=== PATIENT | female | born 2000 | race Caucasian/White ===

== ENCOUNTER 2018-01-10 13:05 | Inpatient (IN) ==
[2018-01-10 14:02] LABS: Bilirubin,Urine Negative (Negative); Blood,Urine Large (Negative); Clarity,Urine Cloudy (Clear); Color,Urine Red (Yellow); Glucose,Urine (UA) Normal (Normal); Ketones,Urine Negative (Negative); Leukocyte Esterase,Urine Moderate (Negative); Nitrite,Urine Negative (Negative); Protein,Urine 100 mg/dL (Neg-Trace); Specific Gravity,Urine 1.009 (1.010-1.025); Urobilinogen,Urine Normal (Normal)
[2018-01-10 14:03] LABS: Bacteria,Urine Moderate per hpf (None-Few); Hyaline Casts,Urine None Seen per lpf (None-Few); RBC,Urine 50-100 per hpf (0-3); Squamous Epithelial Cell,Urine Many per lpf (None-Few); WBC,Urine 30-50 per hpf (0-3)
[2018-01-10] MEDS ORDERED: *HR* Labetalol 20 MG/4 ML SYRINGE IVP ONE ×5 (14:05→17:56)
[2018-01-10 14:07] LABS: Basophils # 0.1 K/mcL (0.0-0.2); Basophils % 0.7 %; Eosinophils # 0.4 K/mcL (0.0-0.6); Eosinophils % 3.4 %; Hematocrit 34.4 % (35.3-44.9); Hemoglobin 11.5 g/dL (11.5-15.4); Immature Granulocytes % 0.9 % (0-4); Lymphocytes # 1.9 K/mcL (0.6-4.6); Lymphocytes % 17.5 %; Mean Corpuscular HGB Conc 33.4 g/dL (31.6-35.5); Mean Corpuscular Hemoglobin 30.7 pg (28.0-33.3); Mean Corpuscular Volume 91.7 fL (83.0-100.0); Mean Platelet Volume 13.4 fL (9.4-12.4); Monocytes # 0.7 K/mcL (0.0-1.3); Monocytes % 6.5 %; Neutrophils # 7.7 K/mcL (1.6-8.9); Platelet Count 155 K/mcL (140-400); Red Blood Count 3.75 M/mcL (3.82-4.97); Red Cell Distribution Width 13.4 % (11.5-14.5)
[2018-01-10] MEDS: *HR* Labetalol 20 MG/4 ML SYRINGE IVP STA (14:07)
--- NOTE | 2018-01-10 14:25 | OB/GYN History & Physical ---
Date of Encounter: 01/10/18 Time of Encounter: 14:20 Assessment and Plan (1) 38 weeks gestation of Current visit: Yes Status: Acute admitted for delivery (2) PIH ( induced hypertension), antepartum Current visit: Yes Status: Acute Admitted for delivery Discussed patient assessment, BPs and lab results with Dr. Andino. Dr. Andino agrees with POC and treatment plan. No new orders or recommendations at this time, History of Present Illness Chief complaint: Elevated BP in HPI: Ms. Means is a 18 year old female @ 38w6d presents to labor and delivery from OB appointment with Dr. Bennett for elevated BP in office. BP in office today was 164/120 and repeat was 170/120. Patient had denied headache, visual disturbances or epigastric pain : Nbut now reports visual disturbances. Patient reports good movement. Denies feeling contractions. Patient reports vaginal bleeding after SVE in office today. Patient denies blood clots. Patients SVE in office today was 1-2/60/-3. Blood type: O Positive Rubella: Non-immune Hep B: drawn on admission results pending GBS: Negative Past Med Surg Social Fam HX - Past Medical History Source: patient Medical history: no medical history Additional medical history: miscarriage Psychiatric history: no psych history - Past Surgical History Surgical History: no surgical history - Social History Smoking Status: Never smoker Smokeless Tobacco Status: No Alcohol use: none Drug use: none - Family History Mother Living Status: Still Living Hx Family Cardiac Disorders: No Hx Family Respiratory Disorders: No Hx Family Cancer: No Hx Family GI Disorders: No Hx Family Genitourinary Disorders: No Hx Family Endocrine Disorder: No Hx Family Musculoskeletal Disorders: No Hx Family Neuromuscular Disorders: No Hx Family Neurologic Disorders: No Hx Family HEENT Disorders: No Hx Family Autoimmune Disorders: No Hx Family Reproductive Disorders: No Hx Family Psychosocial Disorders: No Hx Family Medical Disorders: No Obstetrical History - Pregnancies : 2 Para: 0 Term: 0 : 0 Ab's: 0 Livin Medications and Allergies No Known Home Drugs 06/15/15 [History] Allergy/AdvReac Type Severity Reaction Status Date / Time ibuprofen Allergy Swelling Verified 01/10/18 13:46 of Lip/Tongue/Throat Review of System OB - Constitutional Constitutional ROS IM: no chills, no fever(s), no headache(s) - Cardiovascular Cardiovascular: pedal edema, no chest pain, no lightheadedness, no palpitations, no syncope - Respiratory Respiratory: no dyspnea - Gastrointestinal Gastrointestinal: no abdominal pain, no constipation, no diarrhea, no heartburn, no nausea, no vomiting - Genitourinary Genitourinary: no difficulty urinating, no dysuria, no flank pain, no genital lesions, no urinary frequency, no urinary incontinence, no urinary urgency, no vaginal odor, no vaginal pruritis Exam - Constitutional Constitutional: well nourished, no acute distress, average body habitus - HEENT HEENT: Normocephaly, Mucus Membranes Moist - Neck Neck exam: full ROM, supple - Lungs Respiratory exam: CTAB - Cardiovascular Cardiovascular exam: RRR, +S1, +S2 - Abdomen Abdomen: Present: bowel sounds normal, gravid, non tender - Extremities Extremities exam: full ROM, normal capillary refill, pedal edema (1+) Deep Tendon Reflex Grade: 2+ Normal (no clonus) - Cervix Cervix: Absent: lesion Dilation: 2 Effacement: 80 Station: -3 - Uterus Uterus exam: Present: normal size, normal contour - Anus/Rectum Anus/Rectum: Present: normal perianal skin - Comments Comments: FHR 125 bpm moderate variability +15x15 accels no decels noted. Irregular contractions. Speculum exam: no lesions noted inside the vagina or externally on perineum Results Result Diagrams: 01/10/18 13:49 01/10/18 13:49 Abnormal lab results RBC 3.75 M/mcL (3.82-4.97) L 01/10/18 13:49 Hct 34.4 % (35.3-44.9) L 01/10/18 13:49 MPV 13.4 fL (9.4-12.4) H 01/10/18 13:49 Urine Color Red (Yellow) A 01/10/18 13:49 Urine Clarity Cloudy (Clear) A 01/10/18 13:49 Ur Specific [place] 1.009 (1.010-1.025) L 01/10/18 13:49 Urine Protein 100 mg/dL (Neg-Trace) H 01/10/18 13:49 Urine Blood Large (Negative) H 01/10/18 13:49 Ur Leukocyte Esterase Moderate (Negative) H 01/10/18 13:49 Urine Microscopic RBC 50-100 per hpf (0-3) H 01/10/18 13:49 Urine Microscopic WBC 30-50 per hpf (0-3) H 01/10/18 13:49 Ur Squamous Epith Cells Many per lpf (None-Few) H 01/10/18 13:49 Urine Bacteria Moderate per hpf (None-Few) H 01/10/18 13:49 Ur Culture Indicated? NO. (NO) A 01/10/18 13:49 All other labs normal. - VTE Reasons for not Prescribing Prophylaxis: Treatment not Indicated - Low risk for VTE
[2018-01-10 14:54] LABS: Alanine Aminotransferase 9 Units/L (7-52); Aspartate Amino Transferase 24 Units/L (13-39); BUN/Creatinine Ratio 11 (6-26); Blood Urea Nitrogen 8 mg/dL (6-20); Lactate Dehydrogenase 207 Units/L (140-271); Uric Acid 7.7 mg/dL (2.3-7.6); eGFR For Non-African Americans > 60 (> 60)
[2018-01-10 14:55] LABS: Protein/Creatinine Ratio,Urine 4.97 mg/mg (0.00-0.20)
[2018-01-10 14:57] LABS: Amphetamine Screen,Urine Negative ng/mL (Cutoff=1000); Barbiturate Screen,Urine Negative ng/mL (Cutoff=200); Benzodiazepines Screen,Urine Negative ng/mL (Cutoff=200); Cannabinoid Screen,Urine Negative ng/mL (Cutoff = 50); Cocaine Screen,Urine Negative ng/mL (Cutoff= 300); Opiate Screen,Urine Negative ng/mL (Cutoff=300); Phencyclidine Screen,Urine Negative ng/mL (Cutoff=25)
--- NOTE | 2018-01-10 15:19 | OB Labor Progress Note ---
Date of Encounter: 01/10/18 Time of Encounter: 15:15 Labor Progress Note - Subjective Subjective: Discussed POC with patient. Patient denies any questions or concerns at this time. - Cervix Cervix: 2/80/-3 - Heart Tones Heart Tones: 125 bpm moderate variability +15x15 accels no decels noted. Cat. 1 tracing. - [place]: irregular contractions noted. - Interventions Interventions: SVE, keys catheter placed for IOL with 40cc sterile water. Patient tolerated well. - Plan Plan: Continue labor management Cytotec 50mcg PO Dr. Andino updated on patient status and POC.
[2018-01-10] MEDS ORDERED: miSOPROStol 100 MCG TABLET PO STA (15:21)
[2018-01-10] MEDS ORDERED: Ringers Solution, Lactated 1,000 ML ONE ×2 (15:55→23:19)
[2018-01-10] MEDS ORDERED: *HR* Labetalol 20 MG/4 ML SYRINGE IVP STA (15:58)
--- NOTE | 2018-01-10 16:03 | Event Note ---
Date of Encounter: 01/10/18 Time of Encounter: 15:59 Patient's BP 180/101. Magnesium sulfate 4 gram loading dose initiated. Dr. Andino notified of BPs. Dr. Andino states to given Labetalol 20mg IVP now and call him with the repeat BP in 10 minutes. After Magnesium loading dose in finished a 2 gram/hour dose will be started. Will start strict I&O's at this time. IV fluid to be maintained at 125cc/hour. Patient denies any headache, visual disturbances or epigastric pain.
[2018-01-10] MEDS: Magnesium Sulfate 20 gm/500mL 20 GM/500 ML IV.SOLN IVC SCH (16:43)
--- NOTE | 2018-01-10 17:25 | Event Note ---
Date of Encounter: 01/10/18 Time of Encounter: 16:20 Dr. Andino to take over care at this time due to Severe Preeclampsia. Patient notified of transfer of care due to Midwifery scope of practice. Patient denies any questions or concerns as this time.
--- NOTE | 2018-01-10 18:25 | Anesthesia Evaluation PreOp ---
Date of Encounter: 01/10/18 Time of Encounter: 18:15 - Past History Planned Operation: job Cardiac History: Denies any Significant Hx Pulmonary History: Denies Any Significant HX VITAMIN MANAGER History: Denies Any Significant HX Other Medical History: Denies Any Significant HX Anesthesia History: No Prior Anesthetic Complications : Yes Test: Positive Alcohol Use: none Drug use: none Medications and Allergies No Known Home Drugs 06/15/15 [History] Allergy/AdvReac Type Severity Reaction Status Date / Time ibuprofen Allergy Swelling Verified 01/10/18 13:46 of Lip/Tongue/Throat - Meds/Allergy Pre-op Review Medications Reviewed: Yes Allergies Reviewed: Yes Beta Blockers on Current Med List: No Anesthesia Results - Labs 01/10/18 13:49 01/10/18 13:49 Anesthesia Exam - HEENT Pupil (Motor): Pupils equal Mallampati: II Teeth: Normal Oral Opening: Greater than 3 - VITAMIN MANAGER LOC: Oriented VITAMIN MANAGER Motor: Normal RUE, Normal LUE, Normal RLE, Normal LLE, Normal Face VITAMIN MANAGER Sensory: Normal: RUE, LUE, RLE, LLE, Face - Cardiac Rhythm: Regular Murmur: None JVD: No Carotid Bruit: No - Pulmonary Breath Sounds: bilateral Clear Respiratory Effort: Symmetrical Anesthesia Assess/Plan ASA Score: 2 Modified Payal Scale for Level of Consciousness: Cooperative, oriented, and t ranquil Anesthetic Plan: Regional Autologous Blood: No Monitoring Plan: Standard Monitors
--- NOTE | 2018-01-10 18:27 | OB Labor Progress Note ---
Date of Encounter: 01/10/18 Time of Encounter: 18:25 Labor Progress Note - Subjective Subjective: pressures are up again, she is s/p 20mg x2, 40mg IV labetalol, she does not report symptoms of preeclampsia - Vital Signs Vital Signs: severe range pressures (systolics 160's) - Cervix Cervix: 2cm with a keys - Heart Tones Heart Tones: CAT 1 - Plan Plan: patient given IV labetalol 80mg IV, pressures are now in the systolics 130's, will check every 15 mins and if trending up, will give epidural to help reduce the pressure, I talked to the patient about giving hydralazine next (as long as she is not tachycardic), if she continues to have severe range pressure but after that we will need to proceed to a for delivery, Cont Mg for seizure ppx.
[2018-01-10] MEDS ORDERED: Epidural Premix (fent/bupiv) 110 ML EP SCH (18:30)
--- NOTE | 2018-01-10 19:38 | OB Labor Progress Note ---
Date of Encounter: 01/10/18 Time of Encounter: 19:36 Labor Progress Note - Subjective Subjective: keys fell out - Vital Signs Vital Signs: VSS - Cervix Cervix: 4/80 - Heart Tones Heart Tones: CAT 1 - Plan Plan: start pitocin, anticipate , urine output is good, anticipate
[2018-01-10] MEDS ORDERED: Oxytocin 20 units/ LR 1000 mL 20 UNIT/1,000 ML BAG IVC SCH (19:45)
[2018-01-10] MEDS ORDERED: Acetaminophen 325 MG TABLET PO ONE (21:08)
[2018-01-10] MEDS ORDERED: Calcium Gluconate 1,000 MG/10 ML VIAL IVPB ONE (21:14)
--- NOTE | 2018-01-10 22:46 | OB Labor Progress Note ---
Date of Encounter: 01/10/18 Time of Encounter: 22:44 Labor Progress Note - Subjective Subjective: patient desires epidural - Vital Signs Vital Signs: VSS - Cervix Cervix: 4cm - Heart Tones Heart Tones: CAT 1 - Plan Plan: ok for epidural, anticipate
[2018-01-10] MEDS ORDERED: Bupivacaine-MPF 0.25% 10 ML VIAL ONE (22:50)
[2018-01-10] MEDS ORDERED: *HR* FentaNYL (PF) 100 MCG/2 ML VIAL ONE (22:50)
[2018-01-10] MEDS ORDERED: EPHEDrine 50 MG/ML VIAL ONE (23:19)
--- NOTE | 2018-01-10 23:29 | Anesthesia Procedures ---
Date of Encounter: 01/10/18 Time of Encounter: 22:54 (TWIN procedure end 2305) Procedures: Anesthesia - Epidural/Spinal Patient ID/Chart reviewed: Yes Patient examined: Yes OB Eval: Gestational age: 37 OB Eval: : 1 OB Eval: Hx Para: 0 OB Eval: Contractions: Non-stressed pattern Consent Obtained: Yes Site Prep: Aseptic Technique, Sterile prep and drape, Povidone-Iodine 1% Patient position: upright Amount of Local Anesthetic used: 3 Touhy Needle Gauge: 18 Touhy Needle Depth (cm): 6 Catheter Depth at Skin (cm): 8 Test Dose (1.5% Lido + Epi): Volume given (mls): 3 Test Dose Result: Negative Loading Dose: 0.25% Marcaine (mls): 5 Loading Dose: Fentanyl (mcg): 100 Loading Dose Administered: Thru Catheter Infusion Rate (mls/hr): [address]: Tegaderm Interspace Used: L4-L5 Loss of Resistance (SANDRA): Yes Blood: No CSF: No Paresthesia: No Procedure: TWIN with ease first attempt. VSS and FHTS throughout. states no pain after epidural with contractions.
[2018-01-11] MEDS: Magnesium Sulfate 20 gm/500mL 20 GM/500 ML IV.SOLN IVC SCH ×2 (02:30→12:04)
[2018-01-11] MEDS ORDERED: Ringers Solution, Lactated 1,000 ML ONE ×2 (02:54→11:40)
--- NOTE | 2018-01-11 05:26 | OB Labor Progress Note ---
Date of Encounter: 01/11/18 Time of Encounter: 05:24 Labor Progress Note - Subjective Subjective: patient is comfortable s/p epidural - Vital Signs Vital Signs: 140s-150s systolics - Cervix Cervix: 4-5/80 - Heart Tones Heart Tones: CAT 1 - [place]: irreg - Plan Plan: cont with pitocin, patient AROM'ed, anticipate
[2018-01-11] MEDS ORDERED: Acetaminophen 325 MG TABLET PO ONE ×2 (06:02→21:05)
[2018-01-11] MEDS ORDERED: *HR* Ropivacaine/PF 0.2% 20 ML VIAL ONE (10:23)
[2018-01-11] MEDS ORDERED: *HR* FentaNYL (PF) 100 MCG/2 ML VIAL ONE (10:23)
[2018-01-11] MEDS ORDERED: Ondansetron 4 MG/2 ML VIAL IVP PRN (11:43)
--- NOTE | 2018-01-11 11:47 | Event Note ---
Date of Encounter: 01/11/18 Time of Encounter: 11:45 Pitocin currently at 20 microunits. I went to bedside to check on patient. Tracing currently reactive with irregular contractions Sterile vaginal exam unchanged at 5 cm/70% effaced. I have discussed with nursing to begin increasing Pitocin above 20 microunits. We will go to 30 microunits if necessary.
--- NOTE | 2018-01-11 12:09 | Anesthesia Progress Note ---
Date of Encounter: 01/11/18 Time of Encounter: 10:30 Anesthesia Note - Note Note: called to patient's bedside to evaluate breakthrough labor pain. patient describes pain located in the middle of her abdomen with contractions. confirmed catheter to be in proper position. 7mL of 0.1% ropivicaine + 100mcg fentanyl administered through catheter. Patient reports improvement in pain score. VSS 01/11/18 12:07
[2018-01-11] MEDS ORDERED: *HR* Labetalol 20 MG/4 ML SYRINGE IVP ONE ×2 (17:27→17:28)
--- NOTE | 2018-01-11 17:29 | Event Note ---
Date of Encounter: 01/11/18 Time of Encounter: 17:28 Patient's labor progressing. Last cervical check 8 cm, 90% effaced and a +1 station. Reactive heart rate. Patient's blood pressures continued to be elevated. Patient given 20 mg of labetalol IV. Patient currently on magnesium sulfate. Contractions every 2-4 minutes. We will continue induction
[2018-01-11] MEDS ORDERED: *HR* Labetalol 20 MG/4 ML SYRINGE IVP STA (18:28)
[2018-01-11] MEDS: *HR* Labetalol 20 MG/4 ML SYRINGE IVP STA (21:53)
--- NOTE | 2018-01-11 23:01 | OB/GYN Procedure Note ---
Delivery - Delivery Date: 01/11/18 Provider: Prem Penaloza Delivery induction: oxytocin, keys, misoprostol Delivery augmentation: rupture of membranes, pitocin Delivery monitor: external FHT, external uterine, internal uterine Anesthesia: epidural Quantitated Blood Loss: 300 - (s) Infant A Infant Delivery Date: 01/11/18 Delivery Time: 22:30 Presentation: vertex Position: OA Route of delivery: Gender: Female Viability: Viable Pounds: 6 Ounces: 9 Weight Gram: 2.98 kg at 1 minute: 7 at 5 mins: 9 Shoulder Dystocia: not encountered Specimens collected: cord blood Placenta: spontaneous Cord: nuchal cord - Repair Episiotomy: none Laceration Description: Perineal - 1st Degree - Complications Delivery complications: none - Disposition Mom disposition: stable in LDR [place] disposition: stable in LDR - Comments Comments: Patient progressed to complete and pushing and had a spontaneous vaginal delivery of a female infant without complications. Infant's head was in the perineum easily. There was a cord around the neck 1 which was easily reduced. The rest of the was then delivered with 1 push. cried medially on delivery. Cord was cut to cut the was then passed to NICU team in attendance. Cord bloods obtained. Placenta was delivered spontaneously and intact. There are no cervical vaginal or periurethral lacerations noted. There was a first- degree perineal laceration repaired with 0 Vicryl suture in usual fashion. Patient delivered a female weight was 6 lbs. 9 oz., 2980 g with Apgars of 7 at 1 minute and 9 at 5 minutes, estimated blood loss of 300 mL
[2018-01-12] MEDS ORDERED: Measles/Mumps/Rubella Vacc 0.5 ML VIAL SQ PRN (01:53)
[2018-01-12] MEDS ORDERED: Oxytocin 20 units/ LR 1000 mL 20 UNIT/1,000 ML BAG IVC SCH (01:53)
[2018-01-12] MEDS ORDERED: Acetaminophen 325 MG TABLET PO PRN (01:53)
[2018-01-12 03:19] LABS: Alanine Aminotransferase 7 Units/L (7-52); Aspartate Amino Transferase 23 Units/L (13-39); BUN/Creatinine Ratio 10 (6-26); Blood Urea Nitrogen 8 mg/dL (6-20); Lactate Dehydrogenase 264 Units/L (140-271); Uric Acid 8.5 mg/dL (2.3-7.6); eGFR For Non-African Americans > 60 (> 60)
[2018-01-12 08:07] LABS: Basophils % 0.2 %; Eosinophils % 0.1 %; Hematocrit 28.5 % (35.3-44.9); Immature Granulocytes % 0.8 % (0-4); Lymphocytes # 1.5 K/mcL (0.6-4.6); Lymphocytes % 7.7 %; Mean Corpuscular HGB Conc 33.7 g/dL (31.6-35.5); Mean Corpuscular Hemoglobin 30.9 pg (28.0-33.3); Mean Corpuscular Volume 91.6 fL (83.0-100.0); Mean Platelet Volume 12.8 fL (9.4-12.4); Monocytes # 1.5 K/mcL (0.0-1.3); Monocytes % 7.8 %; Neutrophils # 16.4 K/mcL (1.6-8.9); Platelet Count 135 K/mcL (140-400); Red Blood Count 3.11 M/mcL (3.82-4.97); Red Cell Distribution Width 13.9 % (11.5-14.5); Segmented Neutrophils % 83.4 %
[2018-01-12 08:08] LABS: Hemoglobin 9.6 g/dL (11.5-15.4)
--- NOTE | 2018-01-12 08:19 | OB/GYN Progress Note ---
Date of Encounter: 01/12/18 Time of Encounter: 08:17 - Assessment and Plan (1) Status post normal vaginal delivery Current Visit: Yes Status: Acute (2) Mild pre-eclampsia, Current Visit: Yes Status: Acute We will continue magnesium sulfate for 24 hours from delivery we will add labetalol if blood pressure remains elevated after stopping we will repeat labs in a.m. Subjective - Subjective Interval history: Patient is doing well this morning just very tired from her long labor. Denies headaches, blurred vision, scotomata. Currently still on magnesium sulfate will be on this till 10 PM tonight. At this point does not need any antihypertensive medications for blood pressure creeps up once magnesium sulfate stops did advise we might have to start on something baby is in the nursery doing well patient is coming get some rest. Patient states bleeding is minimal. Patient reports: appetite normal, pain well controlled [place]: doing well Objective - Latest Vital Signs Latest vital signs: Vital Signs Temp Pulse Resp BP Pulse Ox 01/12/18 07:35 98.7 F 86 16 148/82 96 01/12/18 06:45 90 16 132/83 01/12/18 05:46 88 16 137/79 01/12/18 04:40 84 16 134/92 01/12/18 03:40 97.9 F 72 16 138/79 96 01/12/18 02:30 98.2 F 82 20 125/82 01/12/18 01:30 98.2 F 87 16 126/77 98 Intake and Output 01/11/18 01/12/18 01/12/18 23:59 07:59 15:59 Intake Total 0 / 0 Output Total 500 / 500 3050 / 3050 Balance -500 / -500 -3050 / -3050 Intake: IV Fluids 0 / 0 Pitocin 20 unit In 1,000 ml @ 0 / 0 Per Protocol IVC .Q0M [facility] Rx#: [id number] Output: Urine 2775 / 2775 Estimated Blood Loss 300 / 300 Catheter 200 / 200 275 / 275 Other: Weight 69.9 kg Patient Weight 01/12/18 23:59 Weight 69.9 kg - Exam Lungs: bilateral: normal Chest: Normal S1, Normal S2 Extremities: Present: normal Abdomen: Present: normal appearance Uterus: Present: firm Uterus Position: At Umbilicus - Labs Labs: Laboratory Results - last 24 hr 01/12/18 01/12/18 02:49 02:49 WBC 19.6 H D RBC 3.11 L Hgb 9.6 L D Hct 28.5 L MCV 91.6 MCH 30.9 MCHC 33.7 RDW 13.9 Plt Count 135 L MPV 12.8 H Immature Gran % 0.8 Seg Neutrophils % 83.4 Lymphocytes % 7.7 Monocytes % 7.8 Eosinophils % 0.1 Basophils % 0.2 Neutrophils # 16.4 H Lymphocytes # 1.5 Monocytes # 1.5 H Eosinophils # 0.0 Basophils # 0.0 BUN 8 Creatinine 0.84 Est GFR ( Amer) > 60 Est GFR (Non-Af Amer) > 60 BUN/Creatinine Ratio 10 Uric Acid 8.5 H AST 23 ALT 7 Lactate Dehydrogenase 264
[2018-01-12] MEDS: Prenatal Vit/FA 1 EACH TABLET PO SCH (08:24)
[2018-01-12] MEDS: Magnesium Sulfate 20 gm/500mL 20 GM/500 ML IV.SOLN IVC SCH ×2 (08:26→18:30)
[2018-01-12] MEDS ORDERED: Ringers Solution, Lactated 1,000 ML ONE (12:47)
[2018-01-13] MEDS: Prenatal Vit/FA 1 EACH TABLET PO SCH (07:58)
--- NOTE | 2018-01-13 10:35 | OB/GYN Progress Note ---
Date of Encounter: 01/13/18 Time of Encounter: 10:31 - Assessment and Plan (1) Status post normal vaginal delivery Current Visit: Yes Status: Acute Continue routine care Anticipate discharge home tomorrow Continue following vitals every 4 hours Pre-E labs tomorrow Anticipate discharge home tomorrow POC per consult with Dr Pnealoza (2) Pre-eclampsia Current Visit: Yes Status: Acute Qualifiers: Trimester: unspecified trimester Qualified Code(s): O14.90 - Unspecified pre-eclampsia, unspecified trimester Subjective - Subjective Principal diagnosis: Vaginal Delivery / Pre-Eclampsia Interval history: S/P vaginal delivery day 2 and Pre-eclampsia VSS; BP well controlled with labetalol. Will continue to monitor Pain well controlled lochia light and without clots voiding without difficulty tolerating regular diet; passing flatus breast feeding and bottle feeding anticipate discharge home tomorrow POC per consult with Dr Penaloza Patient reports: appetite normal, voiding normally, pain well controlled, ambulating normally [place]: doing well, nursing well Objective - Latest Vital Signs Latest vital signs: Vital Signs Temp Pulse Resp BP Pulse Ox 01/13/18 08:57 98.1 F 71 14 137/91 99 01/13/18 06:29 132/61 01/13/18 03:35 142/91 01/13/18 00:30 121/79 01/12/18 22:30 90 16 117/68 01/12/18 21:30 94 16 122/73 01/12/18 20:30 93 16 121/84 01/12/18 19:30 98.9 F 93 16 129/82 97 01/12/18 18:30 87 20 145/95 99 01/12/18 17:42 91 20 149/99 97 01/12/18 17:28 152/101 01/12/18 16:35 82 16 155/97 01/12/18 15:30 97.7 F 88 20 143/90 96 01/12/18 14:30 98 16 128/79 01/12/18 13:32 102 20 125/74 97 01/12/18 12:45 97.9 F 101 16 128/86 96 01/12/18 12:42 101 16 128/86 01/12/18 11:30 98.2 F 98 20 143/85 98 Intake and Output 01/12/18 01/13/18 01/13/18 23:59 07:59 15:59 Intake Total 2360 / 2360 300 / 300 Output Total 2675 / 2675 800 / 800 Balance -315 / -315 -500 / -500 Intake: IV Fluids 1400 / 1400 Magnesium Sulfate Premix 20 gm/ 700 / 700 500mL 20 gm In 500 ml @ 2 GM/HR 50 mls/hr IVC .Q10H [facility] Rx#: [id number] Oral 360 / 360 300 / 300 Free Water 600 / 600 Output: Urine 1575 / 1575 800 / 800 Catheter 1100 / 1100 Other: Meal Dinner Percent of Meal Consumed 100% Weight 66.224 kg Patient Weight 01/13/18 23:59 Weight 66.224 kg - Exam Lungs: bilateral: normal Chest: Normal S1, Normal S2 Extremities: Present: normal Abdomen: Present: normal appearance, soft. Absent: gravid Uterus: Present: normal, firm Uterus Position: At Umbilicus, Midline
[2018-01-14 07:30] LABS: Basophils # 0.1 K/mcL (0.0-0.2); Basophils % 0.6 %; Eosinophils # 0.4 K/mcL (0.0-0.6); Eosinophils % 2.8 %; Hematocrit 26.4 % (35.3-44.9); Hemoglobin 8.7 g/dL (11.5-15.4); Immature Granulocytes % 0.8 % (0-4); Lymphocytes % 15.9 %; Mean Corpuscular Hemoglobin 31.2 pg (28.0-33.3); Mean Corpuscular Volume 94.6 fL (83.0-100.0); Mean Platelet Volume 11.5 fL (9.4-12.4); Monocytes # 0.6 K/mcL (0.0-1.3); Monocytes % 4.5 %; Neutrophils # 9.5 K/mcL (1.6-8.9); Platelet Count 180 K/mcL (140-400); Red Blood Count 2.79 M/mcL (3.82-4.97); Red Cell Distribution Width 13.8 % (11.5-14.5); Segmented Neutrophils % 75.4 %
[2018-01-14 07:51] VITALS: BP 133/83
[2018-01-14 08:01] LABS: Alanine Aminotransferase 12 Units/L (7-52); Aspartate Amino Transferase 33 Units/L (13-39); BUN/Creatinine Ratio 16 (6-26); Blood Urea Nitrogen 10 mg/dL (6-20); Lactate Dehydrogenase 241 Units/L (140-271); Uric Acid 7.8 mg/dL (2.3-7.6); eGFR For Non-African Americans > 60 (> 60)
[2018-01-14] MEDS: Prenatal Vit/FA 1 EACH TABLET PO SCH (08:15)
--- NOTE | 2018-01-14 09:25 | Discharge Summary ---
Date of Encounter: 01/14/18 Time of Encounter: 09:22 - Discharge Diagnosis (1) Status post vaginal delivery Priority: Primary Status: Acute Comments: 18 y/o s/p at 39w following IOL for PIH. Meeting PP milestones. Con tinues to work on . Declines control today, safe spacing discussed. Anticipate discharge today. (2) Pre-eclampsia Priority: Secondary Status: Acute Comments: PIH labs trending down and BPs stable. Pt denies SUAZO or visual disturbances. Pt s/p 24hrs post delivery Magnesium. Review symptom precautions. Discharge home with Labetalol 200mg BID and follow-up appt in 1 week for BP check. POC discussed with Dr. Bennett. Qualifiers: Trimester: unspecified trimester Qualified Code(s): O14.90 - Unspecified pre-eclampsia, unspecified trimester - Discharge Medications Prescriptions: Acetaminophen [Tylenol] 650 mg PO Q6HR PRN #30 tablet PRN Reason: Mild Pain Docusate [Colace] 100 mg PO BID #30 capsule Ferrous Sulfate 325 mg PO DAILY #30 tablet Labetalol [Trandate] 200 mg PO Q12H #120 tablet Miscellaneous Medical Supply [Blood Pressure Cuff] 1 each MC DAILY PRN #1 each PRN Reason: Headache Home Medications: Acetaminophen [Tylenol] 650 mg PO Q6HR PRN #30 tablet 01/14/18 [Rx] Docusate [Colace] 100 mg PO BID #30 capsule 01/14/18 [Rx] Ferrous Sulfate 325 mg PO DAILY #30 tablet 01/14/18 [Rx] Labetalol [Trandate] 200 mg PO Q12H #120 tablet 01/14/18 [Rx] Miscellaneous Medical Supply [Blood Pressure Cuff] 1 each MC DAILY PRN #1 each 01/14/18 [Rx] Vit/FA 1 each PO DAILY tablet 01/14/18 [Rx] Allergies/Adverse Reactions: Allergy/AdvReac Type Severity Reaction Status Date / Time ibuprofen Allergy Swelling Verified 01/10/18 13:46 of Lip/Tongue/Throat Data Procedures and tests throughout hospitalization: Laboratory Tests 01/10/18 01/10/18 01/10/18 13:49 13:49 13:49 WBC 10.9 RBC 3.75 L Hgb 11.5 Hct 34.4 L MCV 91.7 MCH 30.7 MCHC 33.4 RDW 13.4 Plt Count 155 MPV 13.4 H Immature Gran % 0.9 Seg Neutrophils % 71.0 Lymphocytes % 17.5 Monocytes % 6.5 Eosinophils % 3.4 Basophils % 0.7 Neutrophils # 7.7 Lymphocytes # 1.9 Monocytes # 0.7 Eosinophils # 0.4 Basophils # 0.1 BUN 8 Creatinine 0.70 Est GFR ( Amer) > 60 Est GFR (Non-Af Amer) > 60 BUN/Creatinine Ratio 11 Uric Acid 7.7 H AST 24 ALT 9 Lactate Dehydrogenase 207 Urine Color Urine Clarity Urine pH Ur Specific [place] Urine Protein Urine Glucose (UA) Urine Ketones Urine Blood Urine Nitrite Urine Bilirubin Urine Urobilinogen Ur Leukocyte Esterase Urine Microscopic RBC Urine Microscopic WBC Ur Squamous Epith Cells Urine Bacteria Hyaline Casts Ur Culture Indicated? Urine Creatinine Protein/Creatinin Ratio Urine Total Protein Urine Opiates Screen Negative Ur Barbiturates Screen Negative Ur Phencyclidine Scrn Negative Ur Amphetamines Screen Negative U Benzodiazepines Scrn Negative Urine Cocaine Screen Negative U Marijuana (THC) Screen Negative Ur Drug Screen Interp See Below Hep Bs Antigen Blood Type Antibody Screen 01/10/18 01/10/18 01/10/18 13:49 13:49 13:49 WBC RBC Hgb Hct MCV MCH MCHC RDW Plt Count MPV Immature Gran % Seg Neutrophils % Lymphocytes % Monocytes % Eosinophils % Basophils % Neutrophils # Lymphocytes # Monocytes # Eosinophils # Basophils # BUN Creatinine Est GFR ( Amer) Est GFR (Non-Af Amer) BUN/Creatinine Ratio Uric Acid AST ALT Lactate Dehydrogenase Urine Color Urine Clarity Urine pH Ur Specific [place] Urine Protein Urine Glucose (UA) Urine Ketones Urine Blood Urine Nitrite Urine Bilirubin Urine Urobilinogen Ur Leukocyte Esterase Urine Microscopic RBC Urine Microscopic WBC Ur Squamous Epith Cells Urine Bacteria Hyaline Casts Ur Culture Indicated? Urine Creatinine 32 Protein/Creatinin Ratio 4.97 H Urine Total Protein 159 H Urine Opiates Screen Ur Barbiturates Screen Ur Phencyclidine Scrn Ur Amphetamines Screen U Benzodiazepines Scrn Urine Cocaine Screen U Marijuana (THC) Screen Ur Drug Screen Interp Hep Bs Antigen Nonreactive Blood Type O POSITIVE Antibody Screen NEGATIVE 01/10/18 01/12/18 01/12/18 13:49 02:49 02:49 WBC 19.6 H D RBC 3.11 L Hgb 9.6 L D Hct 28.5 L MCV 91.6 MCH 30.9 MCHC 33.7 RDW 13.9 Plt Count 135 L MPV 12.8 H Immature Gran % 0.8 Seg Neutrophils % 83.4 Lymphocytes % 7.7 Monocytes % 7.8 Eosinophils % 0.1 Basophils % 0.2 Neutrophils # 16.4 H Lymphocytes # 1.5 Monocytes # 1.5 H Eosinophils # 0.0 Basophils # 0.0 BUN 8 Creatinine 0.84 Est GFR ( Amer) > 60 Est GFR (Non-Af Amer) > 60 BUN/Creatinine Ratio 10 Uric Acid 8.5 H AST 23 ALT 7 Lactate Dehydrogenase 264 Urine Color Red A Urine Clarity Cloudy A Urine pH 7.0 Ur Specific [place] 1.009 L Urine Protein 100 H Urine Glucose (UA) Normal Urine Ketones Negative Urine Blood Large H Urine Nitrite Negative Urine Bilirubin Negative Urine Urobilinogen Normal Ur Leukocyte Esterase Moderate H Urine Microscopic RBC 50-100 H Urine Microscopic WBC 30-50 H Ur Squamous Epith Cells Many H Urine Bacteria Moderate H Hyaline Casts None Seen Ur Culture Indicated? NO. A Urine Creatinine Protein/Creatinin Ratio Urine Total Protein Urine Opiates Screen Ur Barbiturates Screen Ur Phencyclidine Scrn Ur Amphetamines Screen U Benzodiazepines Scrn Urine Cocaine Screen U Marijuana (THC) Screen Ur Drug Screen Interp Hep Bs Antigen Blood Type Antibody Screen 01/14/18 01/14/18 07:20 07:20 WBC 12.6 H RBC 2.79 L Hgb 8.7 L Hct 26.4 L MCV 94.6 MCH 31.2 MCHC 33.0 RDW 13.8 Plt Count 180 MPV 11.5 Immature Gran % 0.8 Seg Neutrophils % 75.4 Lymphocytes % 15.9 Monocytes % 4.5 Eosinophils % 2.8 Basophils % 0.6 Neutrophils # 9.5 H Lymphocytes # 2.0 Monocytes # 0.6 Eosinophils # 0.4 Basophils # 0.1 BUN 10 Creatinine 0.62 Est GFR ( Amer) > 60 Est GFR (Non-Af Amer) > 60 BUN/Creatinine Ratio 16 Uric Acid 7.8 H AST 33 ALT 12 Lactate Dehydrogenase 241 Urine Color Urine Clarity Urine pH Ur Specific [place] Urine Protein Urine Glucose (UA) Urine Ketones Urine Blood Urine Nitrite Urine Bilirubin Urine Urobilinogen Ur Leukocyte Esterase Urine Microscopic RBC Urine Microscopic WBC Ur Squamous Epith Cells Urine Bacteria Hyaline Casts Ur Culture Indicated? Urine Creatinine Protein/Creatinin Ratio Urine Total Protein Urine Opiates Screen Ur Barbiturates Screen Ur Phencyclidine Scrn Ur Amphetamines Screen U Benzodiazepines Scrn Urine Cocaine Screen U Marijuana (THC) Screen Ur Drug Screen Interp Hep Bs Antigen Blood Type Antibody Screen Labs on day of discharge: Labs from last 24 hours 01/14/18 01/14/18 07:20 07:20 WBC 12.6 H RBC 2.79 L Hgb 8.7 L Hct 26.4 L MCV 94.6 MCH 31.2 MCHC 33.0 RDW 13.8 Plt Count 180 MPV 11.5 Immature Gran % 0.8 Seg Neutrophils % 75.4 Lymphocytes % 15.9 Monocytes % 4.5 Eosinophils % 2.8 Basophils % 0.6 Neutrophils # 9.5 H Lymphocytes # 2.0 Monocytes # 0.6 Eosinophils # 0.4 Basophils # 0.1 BUN 10 Creatinine 0.62 Est GFR ( Amer) > 60 Est GFR (Non-Af Amer) > 60 BUN/Creatinine Ratio 16 Uric Acid 7.8 H AST 33 ALT 12 Lactate Dehydrogenase 241 Date of admission: 01/10/18 13:05 Primary care physician: Marita Milligan MD Consults: 01/12/18 01:53 Consult to [employer] [CONS] Routine Comment: Vaginal delivery, consult needed Discharging clinician: Heather Bah Anticipated date of discharge: 01/14/18 - Patient Status Disposition: Home, Self-Care Condition: Good Functional capacity at discharge: independent ambulation Overall status at discharge: patient is progressing back to baseline - Discharge Instructions Instructions: Chronic Hypertension (DC) Follow Up With: Marita Milligan MD [Primary Care Provider] - Ivan Bennett DO [Partnered Physician] - Additional Instructions: Follow-up in 1 week for blood pressure check. - Diet and Activity Activity: increase activity as tolerated Diet: advance to your usual diet Hospital Course Reason for admission: induction of labor Delivery: Episiotomy: none Laceration: 1st degree Other procedures: none complications: none Discharge diagnosis: IUP at term delivered [place] baby: female Hospital course: - Delivery Date: 01/11/18 Provider: Prem Penaloza Delivery induction: oxytocin, keys, misoprostol Delivery augmentation: rupture of membranes, pitocin Delivery monitor: external FHT, external uterine, internal uterine Anesthesia: epidural Quantitated Blood Loss: 300 - Infant (s) Infant A Infant Delivery Date: 01/11/18 Delivery Time: 22:30 Presentation: vertex Position: OA Route of delivery: Gender: Female Viability: Viable Pounds: 6 Ounces: 9 Weight Gram: 2.98 kg at 1 minute: 7 at 5 mins: 9 Shoulder Dystocia: not encountered Specimens collected: cord blood Placenta: spontaneous Cord: nuchal cord - Repair Episiotomy: none Laceration Description: Perineal - 1st Degree - Complications Delivery complications: none - Disposition Mom disposition: stable in LDR disposition: stable in LDR - Comments Comments: Patient progressed to complete and pushing and had a spontaneous vaginal delivery of a female without complications. Infant's head was in the perineum easily. There was a cord around the neck 1 which was easily reduced. The rest of the was then delivered with 1 push. Infant cried medially on delivery. Cord was cut to cut the was then passed to NICU team in attendance. Cord bloods obtained. Placenta was delivered spontaneously and intact. There are no cervical vaginal or periurethral lacerations noted. There was a first- degree perineal laceration repaired with 0 Vicryl suture in usual fashion. Patient delivered a female infant weight was 6 lbs. 9 oz., 2980 g with Apgars of 7 at 1 minute and 9 at 5 minutes, estimated blood loss of 300 mL Time Attestation: Total time spent providing and/or coordinating discharge services: Exam - Constitutional Vitals: Temp Pulse Resp BP Pulse Ox 97.6 F 76 16 133/83 98 01/14/18 07:50 01/14/18 07:50 01/14/18 07:50 01/14/18 07:50 01/14/18 03:30 General appearance IM: A&O X 3, pleasant, no acute distress - Respiratory Respiratory exam: Present: CTAB - Cardiovascular Cardiovascular exam IM: Present: RRR, +S1, +S2 - GI/Abdominal GI/Abdominal exam IM: normal bowel sounds - Uterus Position: 1 Finger Below Umbilicus - Extremities Exam Extremities exam IM: Present: normal inspection - Neurological Exam Neurological exam: alert, oriented X3, reflexes normal
== END 2018-01-14 11:20 | disposition home or self-care (01) | DRG 560 ==
LOC: 1NENULAB → OBSVTOIN 13:05 → 1NENUOBS 01-12 01:21
PROVIDERS: ADMIT Advanced Practice Midwife; ATTEND Advanced Practice Midwife

== ENCOUNTER 2019-04-14 10:00 | Inpatient (IN) ==
[2019-04-14] MEDS ORDERED: Famotidine 20 MG/2 ML VIAL IVP PRN (12:25)
[2019-04-14] MEDS ORDERED: Metoclopramide 10 MG/2 ML VIAL IVP PRN (12:25)
[2019-04-14] MEDS ORDERED: Naloxone 0.4 MG/ML INJ IVP PRN (12:25)
[2019-04-14] MEDS ORDERED: miSOPROStoL 25 MCG TABLET PO PRN (12:31)
[2019-04-14 12:59] LABS: Amphetamine Screen,Urine Negative ng/mL (Cutoff=1000); Barbiturate Screen,Urine Negative ng/mL (Cutoff=200); Benzodiazepines Screen,Urine Negative ng/mL (Cutoff=200); Cannabinoid Screen,Urine Negative ng/mL (Cutoff = 50); Cocaine Screen,Urine Negative ng/mL (Cutoff= 300); Opiate Screen,Urine Negative ng/mL (Cutoff=300); Phencyclidine Screen,Urine Negative ng/mL (Cutoff=25)
[2019-04-14] MEDS ORDERED: *HR* FentaNYL (PF) 100 MCG/2 ML VIAL EP ONE (16:38)
[2019-04-14] MEDS ORDERED: *HR* FentaNYL (PF) 100 MCG/2 ML VIAL ONE (16:42)
[2019-04-14] MEDS ORDERED: Epidural Premix (fent/bupiv) 110 ML EP SCH (16:45)
[2019-04-14 16:55] LABS: Basophils # 0.1 K/mcL (0.0-0.2); Basophils % 0.5 %; Eosinophils # 0.1 K/mcL (0.0-0.6); Eosinophils % 1.1 %; Hematocrit 32.3 % (35.3-44.9); Hemoglobin 10.8 g/dL (11.5-15.4); Immature Granulocytes % 0.5 % (0-4); Lymphocytes # 1.9 K/mcL (0.6-4.6); Lymphocytes % 19.5 %; Mean Corpuscular HGB Conc 33.4 g/dL (31.6-35.5); Mean Corpuscular Hemoglobin 30.2 pg (28.0-33.3); Mean Corpuscular Volume 90.2 fL (83.0-100.0); Mean Platelet Volume 12.7 fL (9.4-12.4); Monocytes # 0.6 K/mcL (0.0-1.3); Monocytes % 6.5 %; Neutrophils # 6.9 K/mcL (1.6-8.9); Platelet Count 171 K/mcL (140-400); Red Blood Count 3.58 M/mcL (3.82-4.97); Red Cell Distribution Width 13.1 % (11.5-14.5); Segmented Neutrophils % 71.9 %; White Blood Count 9.6 K/mcL (4.3-11.1)
[2019-04-14] MEDS ORDERED: EPHEDrine 50 MG/ML VIAL ONE (17:22)
[2019-04-14] MEDS ORDERED: Oxytocin 20 units/ LR 1000 mL 20 UNIT/1,000 ML BAG IVC SCH (17:30)
[2019-04-14] MEDS: Ringers Solution, Lactated 1,000 ML IVC SCH ×2 (17:58→20:56)
[2019-04-15] MEDS ORDERED: Measles/Mumps/Rubella Vacc 0.5 ML VIAL SQ PRN (01:15)
[2019-04-15] MEDS ORDERED: *HR* HYDROcodone/Acet 5/325 mg TABLET PO PRN (01:15)
[2019-04-15] MEDS ORDERED: Benzocaine/Menthol 56 GM AEROSOL SPRAY TP PRN (01:15)
[2019-04-15] MEDS ORDERED: Lanolin 7 G OINT...G. TP PRN (01:15)
[2019-04-15] MEDS ORDERED: Oxytocin 20 units/ LR 1000 mL 20 UNIT/1,000 ML BAG IVC SCH (01:15)
[2019-04-15] MEDS ORDERED: Ibuprofen 600 MG TABLET PO PRN (01:15)
[2019-04-15] MEDS: Acetaminophen 325 MG TABLET PO PRN ×3 (01:27→21:21)
[2019-04-15 06:25] LABS: Basophils # 0.1 K/mcL (0.0-0.2); Basophils % 0.4 %; Eosinophils # 0.1 K/mcL (0.0-0.6); Eosinophils % 0.6 %; Hematocrit 30.4 % (35.3-44.9); Hemoglobin 9.9 g/dL (11.5-15.4); Immature Granulocytes % 0.5 % (0-4); Lymphocytes # 1.7 K/mcL (0.6-4.6); Mean Corpuscular HGB Conc 32.6 g/dL (31.6-35.5); Mean Corpuscular Volume 92.1 fL (83.0-100.0); Mean Platelet Volume 12.4 fL (9.4-12.4); Monocytes # 0.6 K/mcL (0.0-1.3); Monocytes % 5.4 %; Neutrophils # 9.4 K/mcL (1.6-8.9); Platelet Count 135 K/mcL (140-400); Red Cell Distribution Width 13.1 % (11.5-14.5); Segmented Neutrophils % 79.1 %; White Blood Count 11.9 K/mcL (4.3-11.1)
[2019-04-15] MEDS: Prenatal Vit/FA 1 EACH TABLET PO SCH (07:38)
[2019-04-16] MEDS: Prenatal Vit/FA 1 EACH TABLET PO SCH (07:39)
[2019-04-16 09:32] VITALS: BP 132/78
== END 2019-04-16 12:19 | disposition home or self-care (01) | DRG 560 ==
LOC: 1NENULAB 11:03 → 1NENUOBS 04-15 00:42
PROVIDERS: ADMIT Obstetrics & Gynecology; ATTEND Obstetrics & Gynecology

== ENCOUNTER → 2020-06-28 20:35 | Observation (INO) ==
[2020-06-28 20:01] LABS: Basophils # 0.1 K/mcL (0.0-0.2); Basophils % 0.7 %; Eosinophils # 0.1 K/mcL (0.0-0.6); Hematocrit 32.5 % (35.3-44.9); Hemoglobin 10.6 g/dL (11.5-15.4); Immature Granulocytes % 0.5 % (0-4); Mean Corpuscular HGB Conc 32.6 g/dL (31.6-35.5); Mean Corpuscular Hemoglobin 29.3 pg (28.0-33.3); Mean Corpuscular Volume 89.8 fL (83.0-100.0); Mean Platelet Volume 12.7 fL (9.4-12.4); Monocytes # 0.5 K/mcL (0.0-1.3); Monocytes % 5.4 %; Neutrophils # 6.9 K/mcL (1.6-8.9); Platelet Count 161 K/mcL (140-400); Red Blood Count 3.62 M/mcL (3.82-4.97); Red Cell Distribution Width 12.2 % (11.5-14.5); Segmented Neutrophils % 71.4 %; White Blood Count 9.6 K/mcL (4.3-11.1)
[2020-06-28 20:05] LABS: Protein/Creatinine Ratio,Urine 0.09 mg/mg (0.00-0.20)
[2020-06-28 20:17] LABS: Alanine Aminotransferase 9 Units/L (7-52); Aspartate Amino Transferase 24 Units/L (13-39); BUN/Creatinine Ratio 8 (6-26); Blood Urea Nitrogen 5 mg/dL (6-20); Lactate Dehydrogenase 225 Units/L (140-271); Uric Acid 7.2 mg/dL (2.3-7.6); eGFR For African Americans > 60 (> 60); eGFR For Non-African Americans > 60 (> 60)
== END | disposition home or self-care (01) ==
LOC: 1NENULAB
PROVIDERS: ADMIT Student in an Organized Health Care Education/Training Program; ATTEND Student in an Organized Health Care Education/Training Program

== ENCOUNTER 2020-07-05 15:41 | Inpatient (IN) ==
[2020-07-05 15:28] LABS: Basophils # 0.1 K/mcL (0.0-0.2); Eosinophils # 0.1 K/mcL (0.0-0.6); Eosinophils % 1.7 %; Hematocrit 33.4 % (35.3-44.9); Immature Granulocytes % 0.5 % (0-4); Lymphocytes # 1.8 K/mcL (0.6-4.6); Lymphocytes % 21.9 %; Mean Corpuscular HGB Conc 32.9 g/dL (31.6-35.5); Mean Corpuscular Hemoglobin 29.6 pg (28.0-33.3); Mean Corpuscular Volume 89.8 fL (83.0-100.0); Mean Platelet Volume 12.4 fL (9.4-12.4); Monocytes # 0.5 K/mcL (0.0-1.3); Monocytes % 6.2 %; Neutrophils # 5.6 K/mcL (1.6-8.9); Platelet Count 163 K/mcL (140-400); Red Blood Count 3.72 M/mcL (3.82-4.97); Red Cell Distribution Width 12.4 % (11.5-14.5); Segmented Neutrophils % 68.7 %; White Blood Count 8.1 K/mcL (4.3-11.1)
[2020-07-05 15:48] LABS: Creatinine,Urine 103 mg/dL; Protein/Creatinine Ratio,Urine 0.16 mg/mg (0.00-0.20)
[2020-07-05 15:54] LABS: Alanine Aminotransferase 8 Units/L (7-52); Aspartate Amino Transferase 22 Units/L (13-39); BUN/Creatinine Ratio 11 (6-26); Blood Urea Nitrogen 7 mg/dL (6-20); Lactate Dehydrogenase 187 Units/L (140-271); Uric Acid 7.4 mg/dL (2.3-7.6); eGFR For African Americans > 60 (> 60); eGFR For Non-African Americans > 60 (> 60)
[2020-07-05] MEDS ORDERED: Famotidine 20 MG/2 ML VIAL IVP PRN (16:34)
[2020-07-05] MEDS ORDERED: miSOPROStoL 25 MCG TABLET VG PRN (16:34)
[2020-07-05] MEDS ORDERED: Azithromycin 500 MG in 0.9 % Sodium Chloride 250 ML IVPB ONE (16:34)
[2020-07-05] MEDS ORDERED: Naloxone 0.4 MG/ML INJ IVP PRN (16:34)
[2020-07-05] MEDS ORDERED: Metoclopramide 10 MG/2 ML VIAL IVP PRN (16:34)
[2020-07-05] MEDS ORDERED: EPHEDrine 50 MG/ML VIAL IVP PRN (16:48)
[2020-07-05] MEDS ORDERED: Epidural Premix (fent/bupiv) 110 ML EP SCH (17:00)
[2020-07-05 17:34] LABS: Amphetamine Screen,Urine Negative ng/mL (Cutoff=1000); Barbiturate Screen,Urine Negative ng/mL (Cutoff=200); Benzodiazepines Screen,Urine Negative ng/mL (Cutoff=200); Cannabinoid Screen,Urine Negative ng/mL (Cutoff = 50); Cocaine Screen,Urine Negative ng/mL (Cutoff= 300); Opiate Screen,Urine Negative ng/mL (Cutoff=300); Phencyclidine Screen,Urine Negative ng/mL (Cutoff=25)
[2020-07-05] MEDS ORDERED: Oxytocin 20 units/ LR 1000 mL 20 UNIT/1,000 ML BAG IVC ONE (20:42)
[2020-07-05] MEDS: Ringers Solution, Lactated 1,000 ML IVC SCH ×2 (21:00→23:34)
[2020-07-05] MEDS ORDERED: Oxytocin 20 units/ LR 1000 mL 20 UNIT/1,000 ML BAG IVC SCH ×2 (21:00)
[2020-07-05] MEDS ORDERED: *HR* Nalbuphine 10 MG/ML AMPUL IV PRN (22:19)
[2020-07-05] MEDS ORDERED: Ringers Solution, Lactated 1,000 ML ONE (23:07)
[2020-07-06 01:25] LABS: Adenovirus Not Detected (Not Detect); Coronavirus 229E Not Detected (Not Detect); Coronavirus HKU1 Not Detected (Not Detect); Coronavirus NL63 Not Detected (Not Detect); Coronavirus OC43 Not Detected (Not Detect); Human Metapneumovirus Not Detected (Not Detect); Human Rhinovirus/Enterovirus Not Detected (Not Detect); Influenza A Subtype 2009 H1 Not Detected (Not Detect); SARS-CoV-2 Not Detected (Not Detect)
[2020-07-06 01:26] LABS: Bordetella Pertussis Not Detected (Not Detect); Chlamydophila pneumoniae Not Detected (Not Detect); Influenza B Not Detected (Not Detect); Mycoplasma pneumoniae Not Detected (Not Detect); Parainfluenza Virus 1 Not Detected (Not Detect); Parainfluenza Virus 2 Not Detected (Not Detect); Parainfluenza Virus 3 Not Detected (Not Detect); Parainfluenza Virus 4 Not Detected (Not Detect); Respiratory Syncytial Virus Not Detected (Not Detect)
[2020-07-06] MEDS ORDERED: Lanolin 7 G OINT...G. TP PRN (06:10)
[2020-07-06] MEDS ORDERED: Benzocaine/Menthol 56 GM AEROSOL SPRAY TP PRN (06:10)
[2020-07-06] MEDS ORDERED: Oxytocin 20 units/ LR 1000 mL 20 UNIT/1,000 ML BAG IVC SCH (06:10)
[2020-07-06] MEDS ORDERED: Ibuprofen 600 MG TABLET PO PRN (06:10)
[2020-07-06] MEDS ORDERED: Sennosides 8.6 MG TABLET PO PRN (06:10)
[2020-07-06] MEDS ORDERED: Ondansetron ODT 4 MG TAB.RAPDIS SL STA (08:01)
[2020-07-06] MEDS: Acetaminophen 325 MG TABLET PO PRN (08:03)
[2020-07-06] MEDS: Prenatal Vit/FA 1 EACH TABLET PO SCH (08:03)
[2020-07-07 05:10] LABS: Basophils # 0.1 K/mcL (0.0-0.2); Basophils % 0.5 %; Eosinophils # 0.2 K/mcL (0.0-0.6); Eosinophils % 1.9 %; Hematocrit 30.5 % (35.3-44.9); Hemoglobin 9.8 g/dL (11.5-15.4); Immature Granulocytes % 0.4 % (0-4); Lymphocytes # 2.9 K/mcL (0.6-4.6); Lymphocytes % 26.1 %; Mean Corpuscular HGB Conc 32.1 g/dL (31.6-35.5); Mean Corpuscular Hemoglobin 29.8 pg (28.0-33.3); Mean Corpuscular Volume 92.7 fL (83.0-100.0); Mean Platelet Volume 12.6 fL (9.4-12.4); Monocytes # 0.8 K/mcL (0.0-1.3); Monocytes % 6.9 %; Neutrophils # 7.1 K/mcL (1.6-8.9); Platelet Count 140 K/mcL (140-400); Red Blood Count 3.29 M/mcL (3.82-4.97); Red Cell Distribution Width 12.5 % (11.5-14.5); Segmented Neutrophils % 64.2 %
[2020-07-07 05:25] LABS: Alanine Aminotransferase 7 Units/L (7-52); Aspartate Amino Transferase 19 Units/L (13-39); BUN/Creatinine Ratio 14 (6-26); Blood Urea Nitrogen 8 mg/dL (6-20); Lactate Dehydrogenase 191 Units/L (140-271); Uric Acid 6.7 mg/dL (2.3-7.6); eGFR For African Americans > 60 (> 60); eGFR For Non-African Americans > 60 (> 60)
[2020-07-07] MEDS ORDERED: NIFEdipine XL (24 HR) 30 MG TAB.ER.24 PO SCH (09:15)
[2020-07-07] MEDS: Prenatal Vit/FA 1 EACH TABLET PO SCH (10:41)
[2020-07-07] MEDS: Acetaminophen 325 MG TABLET PO PRN (10:41)
[2020-07-08 03:40] VITALS: BP 136/86
== END 2020-07-07 13:56 | disposition home or self-care (01) | DRG 560 ==
LOC: 1NENULAB → UNDODISIN 22:05 → 1NENUOBS 07-06 08:27
PROVIDERS: ADMIT Obstetrics & Gynecology; ATTEND Obstetrics & Gynecology